=== PATIENT | male | born 1965 | race Asian ===

== ENCOUNTER 2017-02-04 14:29 | Emergency (ER) | payer BC, OTHER ==
[~2017-02-04] VITALS: Ht 165.1 cm; Wt 66.2 kg
[2017-02-04 14:32] VITALS: TEMP 36.4; Ht 165.1 cm; Wt 66.2 kg
[2017-02-04] MEDS ORDERED: LIDOCAINE/EPINEPHRINE 1% 20 ML VIAL INFIL ONE (15:00)
[2017-02-04] MEDS ORDERED: DIPHTHERIA/TETANUS/PERTUSSIS 0.5 ML SYR/VIAL IM. ONE (15:00)
--- NOTE | 2017-02-04 15:08 | EMERGENCY ROOM VISIT NOTE ---
ED Visit Note First contact with patient: 14:35 CHIEF COMPLAINT: Facial laceration HISTORY OF PRESENT ILLNESS: This 51-year-old male patient presents emergency department ambulatory complaining of a laceration to the left eyebrow. The patient states that he was at work and ran into a glass door. There was no loss of consciousness, vomiting, or unusual behavior afterwards. Denies neck pain. No headache, nausea, or blurred vision. There is no active bleeding. The patient rates the pain as sharp and 5/10. The patient's tetanus shot is not up to date. The patient does state that he struck his right knee but has minimal pain there. He is able to walk without difficulty. REVIEW OF SYSTEMS: A 6 system review of systems was completed with positives and pertinent negatives listed in the HPI. ALLERGIES: No known drug allergies MEDICATIONS: No chronic medications PMH: No significant past medical history. SOCIAL HISTORY: The patient lives locally with his . Nonsmoker, denies alcohol use. PHYSICAL EXAM: Vital Signs: Reviewed Nurse's notes, vital signs stable. GENERAL : This is a 51-year-old male, in no acute distress, well-developed, well- nourished. NEURO: The patient is alert and oriented to person place and time. No focal neurological defects. EYES: Pupils are round, equal, and react to light. EOMI. EARS: No hemotympanum. NECK: Supple. No cervical spine tenderness. FACE: No facial bone tenderness or mandibular tenderness. The mouth can open fully. The teeth are well aligned. No loose or chipped teeth. SKIN: There is a 3 cm laceration to the left eyebrow. The edges gape apart with traction. There is no active bleeding and no foreign material in the wound. There are no deep structures present. Capillary refill less than two seconds. Normal sensation to light and sharp touch. EMERGENCY DEPARTMENT COURSE: I examined the patient. Verbal consent was obtained to perform the procedure. Using sterile technique the wound was cleansed with Betadine. The area was sterilely draped. 3 ml of 1% buffered lidocaine with epinephrine was used to anesthetize the laceration on the face. Once the patient was anesthetized, the wound was copiously irrigated under pressure with sterile saline. The wound was explored and was as described above. The laceration was repaired using 2 simple interrupted 5-0 Vicryl sutures and 7 simple interrupted 6-0 nylon sutures with the wound edges being well approximated. The patient tolerated the procedure well. Hemostasis was achieved. The area was cleaned with sterile saline and dressed with bacitracin ointment. The patient was given Td immunization. The patient was discharged home in good condition. DIAGNOSIS: Facial laceration Current/Historical Medications No Active Prescriptions or Reported Meds Allergies Coded Allergies: No Known Allergies (Unverified , 02/04/17) Vital Signs Date Time Temp Pulse Resp B/P Pulse Ox O2 Delivery O2 Flow Rate FiO2 02/04/17 14:32 36.4 71 16 110/75 96 Room Air Departure Information Impression Primary Impression: Facial laceration Dispostion Home / Self-Care Condition GOOD Prescriptions No Active Prescriptions or Reported Meds Referrals No Doctor, Assigned (PCP) Patient Instructions My [facility] Additional Instructions You have received 7 sutures on your face. These sutures are NOT dissolvable and WILL need to be removed by a health care provider in 6-7 days. You can return to the Emergency Department or contact your Primary Care Provider to have the sutures removed. You also have 2 dissolvable stitches. These will fully dissolve in 6-8 weeks. Proper wound care is essential for adequate wound healing and infection prevention. You can shower and clean the wound with soap and water. Do not scour over the wound, pat dry with a towel. Do not submerse the wound (i.e. bathe or dish wash) until the sutures have been removed. You can use an antibiotic ointment with a dressing over the wound for the next 3-4 days. After this time you may leave the wound dry and open to the air. If crust develops over the wound you can use a Q-tip to apply a 1:1 peroxide:water solution to clean the wound. Look for signs of infection of the wound including: increased pain, swelling, foul discharge, streaking, or increased temperature. If any of these are noticed you should return to the Emergency Department for further assessment and treatment. As with any laceration you may have received nerve damage to the surrounding tissues. This damage may or may not be permanent. You should keep the area covered with sunscreen for the first 6 months to 1 year when at risk for exposure to help minimize scarring. You can also use scar reducing creams or Vitamin E oil to help minimize scarring. For pain control, you can use the following [id number] medicines (if >12 yo): - Regular strength (325mg/tab) Tylenol (acetaminophen) 2 tabs every 4-6 hours as needed. Do not exceed 12 tablets in a 24 hour period. Avoid taking more than 4 grams (4000 mg) of Tylenol per day. This includes any other sources of acetaminophen you may take on a regular basis. - Regular strength (200 mg/tab) Advil (ibuprofen) 1-2 tabs every 4-6 hours as needed. Do not exceed a dose of 3200 mg per day. Return to the emergency department if your symptoms worsen despite treatment course outlined above. Problem Qualifiers Primary Impression: Facial laceration Encounter type: initial encounter Qualified Codes: S01.81XA - Laceration without foreign body of other part of head, initial encounter
[2017-02-04 16:04] VITALS: BP 120/76; PULSE 74; O2SAT 97
== END 2017-02-04 16:04 | disposition home or self-care (01) ==
LOC: C.EDB 14:31 → C.EDD 16:04
DX: S01.81XA Laceration without foreign body of other part of head, initial encounter (principal); W25.XXXA Contact with sharp glass, initial encounter; Y92.89 Other specified places as the place of occurrence of the external cause; Y99.0 Civilian activity done for income or pay; M25.561 Pain in right knee; Z23 Encounter for immunization

== ENCOUNTER 2017-02-10 16:19 | Emergency (ER) | payer OTHER, BC ==
[~2017-02-10] VITALS: Ht 157.5 cm; Wt 66.4 kg
[2017-02-10 16:30] VITALS: BP 101/76; PULSE 68; TEMP 36.5; O2SAT 99; Ht 157.5 cm; Wt 66.4 kg
--- NOTE | 2017-02-10 22:29 | EMERGENCY ROOM VISIT NOTE ---
ED Visit Note First contact with patient: 17:08 CHIEF COMPLAINT: Suture removal. HISTORY OF PRESENT ILLNESS: Mr. Cordova is a 51-year-old male who ambulates into the ED requesting suture removal. Patient reports 6 days ago he sustained a laceration through the left upper eye brow. He was seen here and the laceration was sutured closed. He reports since being discharged he feels the laceration has been healing well and there has been no pain, swelling, redness, or drainage from the wound. PHYSICAL EXAM: Vital Signs: Date Time Temp Pulse Resp B/P Pulse Ox O2 Delivery O2 Flow Rate FiO2 02/10/17 16:30 36.5 68 16 101/76 99 Room Air General: 51-year-old male in no acute distress, nontoxic-appearing, hemodynamically stable and afebrile. Neurological: Awake, alert and oriented 3. Answering questions appropriately and following commands. Face: Clean dry and intact wound through the left upper eyebrow without signs of infection (erythema, swelling, tenderness, purulent drainage) ED COURSE: Patient is assessed as noted above. 7 sutures were removed without any difficulty and there was no separation of the wound edges. Patient was educated about today's findings and instructed on history and the plan; he verbalizes understanding and agreement with this plan. DISPOSITION: Patient discharged home in stable condition. CLINICAL IMPRESSION: Suture removal; Well healing laceration. PLAN: Wound care and signs of infection were discussed with the patient. Patient was encouraged to follow-up with family physician or return to the ED for any signs of infection or any new/concerning symptoms.
== END 2017-02-10 17:48 | disposition home or self-care (01) ==
LOC: C.EDB 16:20 → C.EDD 17:48
DX: S01.112D Laceration without foreign body of left eyelid and periocular area, subsequent encounter (principal); X58.XXXD Exposure to other specified factors, subsequent encounter